=== PATIENT | female | born 2000 | race Caucasian/White ===

== ENCOUNTER 2018-07-21 05:45 | Emergency (ER) | payer BC ==
[2018-07-21 06:26] LABS: APPEARANCE,URINE CLOUDY; BILIRUBIN,URINE NEGATIVE (NEGATIVE); COLOR,URINE AMBER; GLUCOSE, URINE NEGATIVE (NEGATIVE); KETONES,URINE NEGATIVE (NEGATIVE); LEUKOCYTE ESTERASE,URINE MODERATE (NEGATIVE); NITRITE,URINE NEGATIVE (NEGATIVE); PROTEIN,URINE 30 mg/dL (NEGATIVE); URINE SPECIFIC GRAVITY 1.026; UROBILINOGEN,URINE NEGATIVE mg/dL (<2.0)
[2018-07-21] MEDS ORDERED: NORMAL SALINE 1000 ML 1,000 ML IV ONE (07:05)
[2018-07-21] MEDS ORDERED: ONDANSETRON HCL INJ/PF 4 MG/2 ML SDV IV ONE (07:06)
--- NOTE | 2018-07-21 07:08 | ER Document Report ---
ED General - General Chief Complaint: Nausea Stated Complaint: NAUSEA Time Seen by Provider: 07/21/18 06:58 Notes: 18-year-old female who began feeling hot and nauseous last night. States she would alternate between hot and cold hot and cold. She would have chills. Denies any significant dysuria denies hematuria. Denies abdominal pain. States she had something like this similarly in the past and was urinary tract infection. She denies any chest pain denies shortness of breath. Denies diarrhea has not vomited but is been very nauseous. Denies any new medications. Denies any sore throat cough. TRAVEL OUTSIDE OF THE [place] IN LAST 30 DAYS: No - Related Data Allergies/Adverse Reactions: No Known Allergies Allergy (Verified 07/21/18 07:26) Past Medical History - Social History Smoking Status: Unknown if Ever Smoked Family History: Reviewed & Not Pertinent Review of Systems - Review of Systems Constitutional: Chills, Fever Gastrointestinal: Nausea. denies: Diarrhea, Vomiting, Constipation Genitourinary: Frequency. denies: Dysuria, Hematuria Skin: denies: Rash Neurological/Psychological: denies: Headaches -: Yes All other systems reviewed and negative Physical Exam - Vital signs Vitals: Temp Pulse Resp BP Pulse Ox 98 F 120 H 18 96/48 L 100 07/21/18 05:50 07/21/18 05:50 07/21/18 05:50 07/21/18 05:50 07/21/18 05:50 - Notes Notes: GENERAL_APPEARANCE: well_nourished, alert, cooperative VITALS: reviewed, see vital signs table. HEAD: no_swelling\tenderness on the head. EYES: PERRL, EOMI, conjunctiva_clear. NOSE: no_nasal_discharge. MOUTH: (-)decreased moisture. THROAT: no_throat_inflammation, no_airway_obstruction. no_lymphadenopathy NECK: supple, no_neck_tenderness, (-)thyromegaly. BACK: no_back_tenderness. CHEST_WALL: no_chest_tenderness. LUNGS: no_wheezing, no_rales, no_rhonchi, (-)accessory muscle use, good air exchange bilateral. HEART: normal_rate, normal_rhythm, normal_S1, normal_S2, (-)S3, (-)S4, no_murmur, no_rub. ABDOMEN: normal_BS, soft, no_abd_tenderness, (-)guarding, (-)rebound, no_organomegaly, no_abd_masses. EXTREMITIES: good pulses in all_extremities, no_swelling\tenderness in the extremities, no_edema. SKIN: warm, dry, good_color, no_rash. MENTAL_STATUS: speech_clear, oriented_X_3, normal_affect, responds_appropriately to questions. Course - Re-evaluation Re-evalutation: 07/21/18 07:08 The patient comes in stating that she has had subjective fever and chills and nausea. Her abdomen is soft and supple on exam no rebound or guarding. She states she felt like this prior with a UTI she denies the possibility of pre gnancy. We will check a urine urine give her some IV fluids and Zofran. Her abdomen is soft and supple no tenderness McBurney's point no focal tenderness noted. Suspicion is low for acute intra-abdominal pathology. 07/21/18 09:53 Patient does have a UTI she does have more blood than I would expect in the urine I was going to CT her however the patient declined stating she is on her. Last time they did a CT which was negative. Confirm the patient is on her. The patient has declined a CT we will give her a dose of Rocephin here and place her on antibiotics for home. - Vital Signs Vital signs: Temp Pulse Resp BP Pulse Ox 100.7 F H 122 H 18 113/69 100 07/21/18 09:38 07/21/18 09:38 07/21/18 09:38 07/21/18 09:38 07/21/18 09:38 - Laboratory Result Diagrams: 07/21/18 08:00 07/21/18 08:00 Laboratory results interpreted by me: 07/21/18 07/21/18 06:00 08:00 WBC 18.3 H Seg Neuts % (Manual) 83 H Band Neutrophils % 12 H Lymphocytes % (Manual) 4 L Monocytes % (Manual) 1 L Abs Neuts (Manual) 17.4 H Urine Protein 30 H Urine Blood LARGE H Ur Leukocyte Esterase MODERATE H Discharge - Discharge Clinical Impression: Nausea UTI (urinary tract infection) Qualifiers: Urinary tract infection type: acute cystitis Hematuria presence: with hematuria Qualified Code(s): N30.01 - Acute cystitis with hematuria Disposition: HOME, SELF-CARE Instructions: Urinary Tract Infection ([facility]) Prescriptions: Cefuroxime Axetil [Ceftin 500 mg Tablet] 1 tab PO BID #20 tablet Ondansetron [Zofran Odt 4 mg Tablet] 1 - 2 tab PO Q4H PRN #15 tab.rapdis PRN Reason: For Nausea/Vomiting
[2018-07-21 08:19] LABS: HEMATOCRIT 40.8 % (36.0-47.0); HEMOGLOBIN 13.6 g/dL (12.0-15.5); MEAN CORPUSCULAR HEMOGLOBIN 27.1 pg (27.0-33.4); MEAN CORPUSCULAR HGB CONC 33.4 g/dL (32.0-36.0); MEAN CORPUSCULAR VOLUME 81 fl (80-97); PLATELET COUNT 264 10^3/uL (150-450); RED BLOOD COUNT 5.03 10^6/uL (3.72-5.28); RED CELL DISTRIBUTION WIDTH 12.7 % (11.5-14.0); WHITE BLOOD COUNT 18.3 10^3/uL (4.0-10.5)
[2018-07-21 08:35] LABS: ALANINE AMINOTRANSFERASE 35 U/L (9-52); ALBUMIN 4.7 g/dL (3.5-5.0); ALKALINE PHOSPHATASE 54 U/L (38-126); ANION GAP 12 (5-19); ASPARTATE AMINO TRANSFERASE 24 U/L (14-36); BILIRUBIN,DIRECT 0.2 mg/dL (0.0-0.4); BLOOD UREA NITROGEN 14 mg/dL (7-20); CALCIUM 9.8 mg/dL (8.4-10.2); CARBON DIOXIDE 26 mmol/L (22-30); CHLORIDE 103 mmol/L (98-107); GLUCOSE 107 mg/dL (75-110); LIPASE 54.8 U/L (23-300); POTASSIUM 4.2 mmol/L (3.6-5.0); SODIUM 140.6 mmol/L (137-145); TOTAL PROTEIN 7.4 g/dL (6.3-8.2)
[2018-07-21 09:05] LABS: ABSOLUTE LYMPHOCYTES# (MANUAL) 0.7 10^3/uL (0.5-4.7); ABSOLUTE MONOCYTES # (MANUAL) 0.2 10^3/uL (0.1-1.4); ABSOLUTE NEUTROPHILS# (MANUAL) 17.4 10^3/uL (1.7-8.2); BAND NEUTROPHILS % (MANUAL) 12 % (3-5); BASOPHILS % (MANUAL) 0 % (0-2); EOSINOPHILS % (MANUAL) 0 % (0-6); LYMPHOCYTES % (MANUAL) 4 % (13-45); MONOCYTES % (MANUAL) 1 % (3-13); SEGMENTED NEUTROPHILS % (MAN) 83 % (42-78); TOTAL CELLS COUNTED 100
[2018-07-21 09:11] LABS: PLATELET COMMENT ADEQUATE; PLATELET LARGE PRESENT; STOMATOCYTES 1+
[2018-07-21 09:12] LABS: HYPOCHROMASIA SLIGHT; POIKILOCYTOSIS 1+; POLYCHROMASIA 1+
[2018-07-21] MEDS ORDERED: CEFTRIAXONE 1 GM/D5W RTU 1 GM/50 ML RTUPB IV ONE (09:35)
[2018-07-21 10:12] VITALS: BP 115/65
[2018-07-22 15:06] LABS: PATH REVIEW PATHOLOGIST REVIEWED
== END 2018-07-21 10:15 | disposition home or self-care (01) ==
LOC: ER 05:45
DX: N30.01 Acute cystitis with hematuria (principal); R11.0 Nausea
CPT/HCPCS: 99283; 96361; 96375; 96365; 36415; 83690; 85025; 81025; 80053; 81001; J2405; J7030; J0696